=== PATIENT | female | born 1955 | race Caucasian/White ===

== ENCOUNTER 2018-01-29 11:15 | Emergency (ER) | payer BC ==
[~2018-01-29] VITALS: Ht 160 cm; Wt 63.0 kg
--- NOTE | 2018-01-29 12:59 | NUR ---
PATIENT WAS SEEN BY MD. XRAYS DONE. BOOT APPLIED. DISC OF XRAY GIVEN. DC, Rx (INCLUDING PRECAUTIONS) and follow up instructions given and explained to patient who states she understands all instructions
== END 2018-01-29 13:02 | disposition home or self-care (01) ==
LOC: ER 11:15
DX: S92.301A Fracture of unspecified metatarsal bone(s), right foot, initial encounter for closed fracture (principal); E78.5 Hyperlipidemia, unspecified; Z88.5 Allergy status to narcotic agent; W20.8XXA Other cause of strike by thrown, projected or falling object, initial encounter; Y93.89 Activity, other specified; Y92.89 Other specified places as the place of occurrence of the external cause; Y99.8 Other external cause status
CPT/HCPCS: 73630; A4663